=== PATIENT | male | born 1965 | race Caucasian/White ===

== ENCOUNTER 2018-10-29 08:59 | Day surgery (SDC) | payer BC ==
[~2018-10-29] VITALS: Ht 177.8 cm; Wt 122.2 kg
[~2018-10-29 08:59] MED LIST: BUPIVACAINE/PF 0.25% ONE; EPINEPHRINE 1 MG/ML, 1ML ONE
[2018-10-29 09:34] VITALS: BP 173/103
[2018-10-29] MEDS ORDERED: LACTATED RINGERS 1,000 ML IV SCH (09:38)
[2018-10-29] MEDS ORDERED: TEST100V2 IM (09:43)
[2018-10-29] MEDS ORDERED: TAMS-11 PO (09:43)
[2018-10-29] MEDS ORDERED: LIDOCAINE-MPF 1%, 2ML ONE (09:45)
[2018-10-29] MEDS ORDERED: LIDOCAINE-MPF 1%, 2ML INFIL ONE (10:00)
[2018-10-29 10:09] VITALS: BP 156/95
[2018-10-29] MEDS ORDERED: MIDAZOLAM 1 MG/ML, 2ML ONE (10:20)
[2018-10-29] MEDS ORDERED: FENTANYL PF 100 MCG/2ML ONE (10:20)
[2018-10-29] MEDS ORDERED: LABETALOL 5MG/ML, 20ML IV PRN (11:00)
[2018-10-29] MEDS ORDERED: DIAZEPAM 5 MG/ML, 2ML IVPush PRN (11:00)
[2018-10-29] MEDS ORDERED: HYDROmorphone 2 MG/ML, 1ML IVPush PRN (11:00)
[2018-10-29] MEDS ORDERED: PROMETHAZINE 25 MG/ML, 1ML IV PRN (11:00)
[2018-10-29] MEDS ORDERED: MEPERIDINE/PF 25MG/0.5ML IVPush PRN (11:00)
[2018-10-29] MEDS ORDERED: ALBUTEROL SULFATE 2.5 MG/3 ML NPPB PRN (11:00)
[2018-10-29] MEDS ORDERED: KETOROLAC 30 MG/1 ML IV PRN (11:00)
[2018-10-29] MEDS ORDERED: ACETAMINOPHEN 325 MG TABLET PO PRN (11:00)
[2018-10-29] MEDS ORDERED: FENTANYL PF 100 MCG/2ML IV PRN (11:00)
[2018-10-29] MEDS ORDERED: hydrALAzine 20 MG/ML, 1ML IV PRN (11:00)
[2018-10-29] MEDS ORDERED: OXYcodone 5 MG/5 ML ORAL.SOL UDC PO PRN (11:00)
[2018-10-29] MEDS ORDERED: PROMETHAZINE 25 MG/ML, 1ML ONE (12:30)
[2018-10-29] MEDS ORDERED: PROPOFOL 10 MG/ML, 20ML ONE (12:38)
[2018-10-29] MEDS ORDERED: SUCCINYLCHOLINE 20 MG/ML, 10ML ONE (12:38)
[2018-10-29] MEDS ORDERED: GLYCOPYRROLATE 0.2MG/1ML, 5ML ONE (12:38)
[2018-10-29] MEDS ORDERED: ROCURONIUM 10MG/ML,5ML ONE (12:38)
[2018-10-29] MEDS ORDERED: NEOSTIGMINE 1 MG/ML, 10ML ONE (12:38)
[2018-10-29] MEDS ORDERED: CEFAZOLIN 1,000 MG ONE (12:38)
[2018-10-29] MEDS ORDERED: DEXAMETHASONE 4 MG/ML, 1ML ONE (12:38)
[2018-10-29] MEDS ORDERED: ONDANSETRON 2MG/ML, 2ML ONE (12:38)
[2018-10-29] MEDS ORDERED: OXYcodone/APAP 5/325MG TABLET ONE (13:37)
== END 2018-10-29 13:45 | disposition home or self-care (01) ==
LOC: OUT 08:59
PROVIDERS: ATTEND Orthopaedic Surgery
DX: S46.211A Strain of muscle, fascia and tendon of other parts of biceps, right arm, initial encounter (principal); G47.33 Obstructive sleep apnea (adult) (pediatric); E66.9 Obesity, unspecified; Z79.899 Other long term (current) drug therapy; X50.0XXA Overexertion from strenuous movement or load, initial encounter; Y93.89 Activity, other specified; Y92.89 Other specified places as the place of occurrence of the external cause; Y99.8 Other external cause status
CPT/HCPCS: 24342; 64415; 73070; 76000; J0171; J0330; J0690; J1100; J2250; J2405; J2550; J2704; J2710; J3010; J3490; J7120